=== PATIENT | male | born 1940 | race Caucasian/White ===

== ENCOUNTER 2020-03-20 06:27 | Day surgery (SDC) | payer MEDICARE ==
[2020-03-17 12:10] VITALS: BMI 26.4
[~2020-03-20 06:27] MED LIST: Fluorouracil 100 MG, Enoxaparin Sodium 25 MG, EPINEPHrine 0.3 MG in Ophthalmic Irrigati... IRR SCH
[2020-03-20] MEDS ORDERED: Midazolam HCl 2 mg/2 ml Vial ONE (06:42)
[2020-03-20] MEDS ORDERED: Fentanyl 100 MCG/2 ML VIAL ONE (06:42)
[2020-03-20] MEDS ORDERED: Phenylephrine 2.5% Ophth Soln 5 ML BOT ONE (07:17)
[2020-03-20] MEDS ORDERED: Cyclopentolate HCl 1% 5 ML BOT ONE (07:17)
[2020-03-20] MEDS ORDERED: Triamcinolone 40 MG/ML VIAL ONE (09:57)
[2020-03-20] MEDS ORDERED: CEFAZOLIN 1 GM VIAL ONE (09:57)
[2020-03-20] MEDS ORDERED: PROPOFOL 200 MG/20 ML VIAL ONE (09:57)
[2020-03-20] MEDS ORDERED: Lidocaine 4% PF 5 ML AMP ONE (09:57)
[2020-03-20] MEDS ORDERED: Maxitrol 0.1% Opth Oint 3.5 GM TUBE ONE (09:57)
[2020-03-20] MEDS ORDERED: Bupivacaine PF 0.75% SDV 10 ML ONE (09:57)
[2020-03-20] MEDS ORDERED: Lidocaine 1% PF 5 ML VIAL ONE (09:57)
[2020-03-20] MEDS ORDERED: Indocyanine Green 25 MG/10 ML VIAL ONE (09:57)
--- NOTE | 2020-03-20 20:32 | OP ---
DATE OF PROCEDURE: 03/20/2020 PREOPERATIVE DIAGNOSIS: Epiretinal membrane, left eye. POSTOPERATIVE DIAGNOSIS: Epiretinal membrane, left eye. PROCEDURE: Pars plana vitrectomy, membrane peel, left eye. ANESTHESIA: Local with monitored anesthesia care. PROCEDURE IN DETAIL: The patient was identified in the preoperative holding area. Appropriate informed consent for the planned surgical procedure on the left eye had been obtained. The patient was transported to the operative suite. Appropriate cardiopulmonary monitoring was established. Local anesthesia obtained using retrobulbar modified Van Lint lid block using 50:50 mixture of 4% lidocaine and 0.75% bupivacaine. The patient was prepped and draped in usual sterile manner for ophthalmic surgery on the left eye. Lid speculum was placed in the left eye. 27-gauge trocar was placed in the conjunctiva and sclera supratemporally, inferotemporally, supranasally. Infusion line was placed inferotemporally. Light pipe and vitreous cutter were inserted into the eye. Core vitrectomy was performed. Indocyanine green dye was infused on the posterior pole x1 identifying the epiretinal membrane. This was elevated using a membrane scraper and peeled across the macula using end gripping forceps. No holes, breaks, or tears were identified. Prophylactic laser was placed behind the sclerotomy sites. Trocars removed. Eye was noted to retain pressure well. Retrobulbar Kenalog and subconjunctival Ancef were placed. Antibiotic ointment was placed. Eye was patched and shielded. The patient was taken to postop recovery in good condition, having suffered no immediate perioperative complications. The patient was instructed to keep patch shield on. Avoid lifting or bending. Followup appointment with Dr. Leal. Job ID: [id number]
== END 2020-03-20 09:50 | disposition home or self-care (01) ==
LOC: SDC 06:27
PROVIDERS: ATTEND Ophthalmology Retina Specialist
PROC: 08T53ZZ Resection of Left Vitreous, Percutaneous Approach (ICD-10-PCS; principal; 2020-03-20)
PROC: 08NF3ZZ Release Left Retina, Percutaneous Approach (ICD-10-PCS; 2020-03-20)
DX: H35.372 Puckering of macula, left eye (principal); I10 Essential (primary) hypertension; E78.5 Hyperlipidemia, unspecified; I25.2 Old myocardial infarction; J45.909 Unspecified asthma, uncomplicated; N40.0 Benign prostatic hyperplasia without lower urinary tract symptoms; Z79.82 Long term (current) use of aspirin; Z79.899 Other long term (current) drug therapy; Z88.5 Allergy status to narcotic agent; Z95.1 Presence of aortocoronary bypass graft; Z95.5 Presence of coronary angioplasty implant and graft
CPT/HCPCS: J0171; J0690; J1650; J2001; J2250; J2704; J3010; J3301; J3490; J9190